=== PATIENT | female | born 1990 | race African-American/Black ===

== ENCOUNTER 2019-02-20 03:01 | Emergency (ER) | payer MEDICAID, OTHER ==
[~2019-02-20] VITALS: Ht 162.6 cm; Wt 47.6 kg
--- NOTE | 2019-02-20 03:11 | NUR ---
PT BIB SELF FOR ITCHINESS. PT HAS HAD ITCHINESS SINCE 2 WEEKS AGO. ROUND, SKIN NOT BROKEN, REDNESS, SMALL BUMPS WITHIN THE ROUND CIRCLES THAT ITCHES, UNRAISED. AAOX4. NO SOB. NAD. CONNECTED TO MONITOR.
--- NOTE | 2019-02-20 03:17 | NUR ---
seen and examined by
[2019-02-20] MEDS ORDERED: FLUCONAZOLE (100 MG) 100 MG TABLET PO ONE (03:30)
[2019-02-20] MEDS ORDERED: FLUCONAZOLE (100 MG) 100 MG TABLET ONE (03:33)
--- NOTE | 2019-02-20 03:39 | NUR ---
PRESCRIPTION GIVEN AND EXPLAINED TO THE PATIENT
--- NOTE | 2019-02-20 03:39 | NUR ---
Patient discharged to home in stable condition. Written and verbal after care instructions given. Patient verbalizes understanding of instruction.
[2019-02-20 03:40] VITALS: BP 121/77
== END 2019-02-20 03:40 | disposition home or self-care (01) ==
LOC: ER 03:02
DX: B35.4 Tinea corporis (principal); Z91.048 Other nonmedicinal substance allergy status